=== PATIENT | male | born 1960 | race Caucasian/White ===

== ENCOUNTER → 2022-09-03 | Outpatient (CLI) | payer OTHER ==
--- NOTE | 2022-09-03 10:38 | MR ---
EXAMINATION TYPE: MR Prostate wo/w con DATE OF EXAM: 09/03/2022 COMPARISON: None. IMAGE QUALITY: Good. INDICATION: Elevated PSA. PSA: 6.38 ng/ml August 09, 2022 and 6.74 on July 14, 2022 Recent Biopsy and Date: None Pathology Report (If Applicable): n/a TECHNIQUE: Examination was performed using a 3T MRI without an endorectal coil. Multiparametric imaging was perf ormed with T2 mutliplanar sequences, axial diffusion weighted imaging and dynamic contrast enhanced i maging, utilizing 8 mL intravenous Gadavist gadolinium contrast. FINDINGS: PROSTATE VOLUME: 5.0 cm SI x 3.5 cm AP x 4.9 cm LR Vol= 44.9 cc PSA DENSITY: 0.14 ng/ml/cc Enlarged prostate gland consistent with BPH. No suspicious areas of diminished signal on ADC mapping in the peripheral zone. No increased signal on diffusion-weighted imaging. There are areas of heterog eneous diminished T2 signal in the right aspect of the gland particularly the mid to basilar aspects for reference axial image 19. No significant increased signal on diffusion-weighted imaging. PI-RADS 3 lesion. Seminal vesicles appear within normal limits. Prostate capsule is maintained. Urinary bladder shows m ild diffuse trabeculation with wall thickness upper limits of normal to minimally thickened. Mild los s thickening in the adjacent sigmoid colon is present as infarct or poor distention. No free fluid in the pelvis. Osseous structures are intact. IMPRESSION: A focus of clinically significant cancer is not definitively identified. Enlarged prostate with equiv ocal transitional zone findings Highest Assessment Category: 3 MRI Stage: T0 N0 M0 based on review of pelvic images. False negative rates for MRI range from 5-20% depending on risk profile. Assessment Categories: 1 ? Very low (clinically significant cancer is highly unlikely to be present) 2 ? Low (clinically significant cancer is unlikely to be present) 3 ? Intermediate (the presence of clinically significant cancer is equivocal) 4 ? High (clinically significant cancer is likely to be present) 5 ? Very high (clinically significant cancer is highly likely to be present)
== END | disposition home or self-care (01) ==
LOC: RADMRIMAIN 09:00
PROVIDERS: ATTEND Urology
DX: N40.0 Benign prostatic hyperplasia without lower urinary tract symptoms (principal); R97.20 Elevated prostate specific antigen [PSA]
CPT/HCPCS: 72197; A9585

== ENCOUNTER 2022-09-30 11:35 | Day surgery (SDC) | payer OTHER ==
[2022-09-27 08:52] VITALS: BMI 29.7
--- NOTE | 2022-09-30 06:36 | P.GSHP ---
History of Present Illness H&P Date: 09/30/22 Chief Complaint: Elevated PSA level The patient is a 62-year-old white male with a family history of prostate cancer. Recent PSA levels above 6.74 and 6.38. An MRI of the prostate showed a prostate volume of 45 mL, with a right-sided PI-RADS 3 lesion. He was advised to undergo a prostate ultrasound with biopsies. He insisted this be done with IV sedation, and the decision was made to perform an MRI fusion biopsy to ensure that the PI-RADS 3 lesion is sampled. - Genitourinary (Male) Genitourinary: Reports nocturia Past Medical History Past Medical History: Prostate Disorder Additional Past Medical History / Comment(s): ENLARGED PROSTATE History of Any Multi-Drug Resistant Organisms: None Reported Past Surgical History: Adenoidectomy, Appendectomy, Tonsillectomy Additional Past Surgical History / Comment(s): Anal Fistula Repair, Left Hydrocele Repair Past Anesthesia/Blood Transfusion Reactions: No Reported Reaction Smoking Status: Current every day smoker - Past Family History Father Family Medical History: Cancer Additional Family Medical History / Comment(s): PROSTATE Sister(s) Family Medical History: Cancer Additional Family Medical History / Comment(s): BRAIN AND LUNG Medications and Allergies Home Medications Medication Instructions Recorded Confirmed Type Tamsulosin HCl [Flomax] 0.4 mg PO HS 09/27/22 09/27/22 History Allergies Allergy/AdvReac Type Severity Reaction Status Date / Time No Known Allergies Allergy Verified 09/27/22 08:40 Surgical - Exam - General well developed, well nourished, no distress - Neck no masses, trachea midline - Respiratory normal respiratory effort - Abdomen Abdomen: soft, non tender, no guarding, no rigid, no rebound - Genitourinary normal penis with no external lesions, testicles non-tender - Rectum Rectum: normal sphincter tone, no masses, other (Prostate moderately enlarged and smooth) - Psychiatric oriented to time, oriented to person, oriented to place, speech is normal, memory intact Assessment and Plan (1) Elevated PSA Status: Acute Code(s): R97.20 - ELEVATED PROSTATE SPECIFIC ANTIGEN [PSA] SNOMED Code(s): 510868051 Plan: MRI ultrasound fusion biopsies of the prostate. The procedure has been reviewed in detail with the patient. He has been made aware of potential risks, which include anesthesia, bleeding, and infection.
[~2022-09-30 11:35] MED LIST: GENTAMICIN 100 MG in SODIUM CHLORIDE 0.9% 100 ML IVPB PRN; LACTATED RINGERS 1,000 ML IV SCH
[2022-09-30 13:30] VITALS: TEMP 97.1
[2022-09-30] MEDS ORDERED: MIDAZOLAM 2 MG/2 ML VIAL ONE (15:00)
[2022-09-30] MEDS ORDERED: PROPOFOL 10 MG/ML 20 ML VIAL IV ONE (15:00)
[2022-09-30] MEDS ORDERED: fentaNYL (PF) 50 MCG/ML 2 ML AMP ONE (15:00)
--- NOTE | 2022-09-30 15:21 | P.OP ---
Date of Procedure: 09/30/22 Preoperative Diagnosis: Elevated PSA Postoperative Diagnosis: Same Procedure(s) Performed: MRI ultrasound fusion biopsies of the prostate Anesthesia: MAC Surgeon: Deepak Lora Estimated Blood Loss (ml): 5 IV fluids (ml): 200 Pathology: other (Prostate biopsies) Condition: stable Disposition: PACU Indications for Procedure: The patient is a 62-year-old white male with a family history of prostate cancer. Recent PSA levels above 6.74 and 6.38. An MRI of the prostate showed a prostate volume of 45 mL, with a right-sided PI-RADS 3 lesion. He was advised to undergo a prostate ultrasound with biopsies. He insisted this be done with IV sedation, and the decision was made to perform an MRI fusion biopsy to ensure that the PI-RADS 3 lesion is sampled. Operative Findings: 3 biopsies obtained from target lesion. 12 additional template biopsies obtained. Description of Procedure: The patient was taken to the operating room and placed in the left lateral decubitus position. The [employer] transrectal ultrasound probe was placed intrarectally. It was then placed within the stand of the [employer] MRI/TRUS Fusion for Prostate Biopsy system. The prostate was imaged in both the axial and sagittal planes, revealing a prostate volume of 55 mL. Using the Biopty gun, 3 biopsies were obtained from the target lesion. The remaining biopsies of the peripheral zone were obtained utilizing a standard template. Once the procedure was completed, the ultrasound probe was removed. The patient tolerated the procedure well was taken to the recovery room stable condition.
[2022-09-30 16:12] VITALS: BP 109/75; PULSE 74; RESP 20
== END 2022-09-30 16:29 | disposition home or self-care (01) ==
LOC: OR 11:35
PROVIDERS: ATTEND Urology
DX: N41.0 Acute prostatitis (principal); N40.1 Benign prostatic hyperplasia with lower urinary tract symptoms; F17.200 Nicotine dependence, unspecified, uncomplicated; Z90.89 Acquired absence of other organs; Z90.49 Acquired absence of other specified parts of digestive tract; Z79.899 Other long term (current) drug therapy
CPT/HCPCS: 55700; 88305; J2250; J0690; J3010; J1580; J2704